=== PATIENT | male | born 1990 | race Hispanic/Latino ===

== ENCOUNTER 2021-03-01 15:39 | Emergency (ER) | payer OTHER ==
[~2021-03-01] VITALS: Ht 165.1 cm; Wt 55.8 kg
[2021-03-01 15:43] VITALS: BP 99/63
[2021-03-01 16:40] VITALS: BP 115/74
[2021-03-01 19:41] VITALS: BP 119/60
== END 2021-03-01 19:49 | disposition home or self-care (01) ==
LOC: EDH 15:39
DX: N63.20 Unspecified lump in the left breast, unspecified quadrant (principal)
CPT/HCPCS: 76641